=== PATIENT | female | born 1995 | race African-American/Black ===

== ENCOUNTER 2018-07-16 10:20 | Emergency (ER) | payer SELFPAY ==
[2018-07-16 12:25] LABS: #Eosinphils 0.3 thou/uL (0.0-0.7); #Lymphocytes 2.1 thou/uL (1.20-3.40); #Monocytes 0.4 thou/uL (0.11-0.59); #Neutrophils 5.1 thou/uL (1.40-6.50); %Basophils 0.4 % (0.0-1.0); %Eosinophils 4.1 % (0.0-10.0); %Lymphocytes 26.7 % (21.0-51.0); %Monocytes 4.9 % (0.0-10.0); Hemoglobin 13.4 g/dL (12.0-16.0); Mean Corpuscular HGB CONC 32.4 g/dL (32.0-36.0); Mean Corpuscular Hemoglobin 28.8 pg (27.0-31.0); Mean Corpuscular Volume 88.7 fL (78.0-98.0); Mean Platelet Volume 8.7 fL (7.4-10.4); Platelet Count 348 thou/uL (130-400); RBC Distribution Width 13.3 % (11.5-14.5); Red Blood Cell (RBC) Count 4.66 mill/uL (4.20-5.40); White Blood Cell (WBC) Count 7.9 thou/uL (4.8-10.8)
[2018-07-16 12:46] LABS: ALT (SGPT) 15 U/L (8-55); AST (SGOT) 21 U/L (5-34); Albumin 4.4 g/dL (3.5-5.0); Alkaline Phosphatase 78 U/L (40-150); Anion Gap 13 mmol/L (10-20); BUN (Urea Nitrogen) 9 mg/dL (7.0-18.7); Bilirubin, Total 0.2 mg/dL (0.2-1.2); Calc. Creatinine Clearance 0 mL/min (70-130); Calcium 9.6 mg/dL (7.8-10.44); Carbon Dioxide 24 mmol/L (22-29); Chloride 104 mmol/L (98-107); Estimated GFR-MDRD Greater than 90; Globulin 3.1 g/dL (2.4-3.5); Glucose 88 mg/dL (70-105); Protein, Total 7.5 g/dL (6.0-8.3); Sodium 137 mmol/L (136-145)
[2018-07-16 12:52] LABS: Bilirubin Negative (Negative); Blood, Urine Negative (Negative); Clarity CLEAR (Clear); Glucose, Urine (Dipstick) Negative (Negative); Leukocyte Small (Negative); Nitrite Negative (Negative); Protein, Urine (Dipstick) Negative (Neg-Trace); Specific Gravity, Urine 1.003 (1.002-1.036); Urobilinogen 0.2 mg/dL (0.2-1.0); pH, Urine 6.5 (5.0-9.0)
[2018-07-16 12:53] LABS: Pregnancy Test - Urine (BHCG) Negative (Negative)
[2018-07-16 12:54] LABS: Bacteria/HPF Rare-Few HPF (None Seen); Hyaline Casts/LPF 0-3 HYALINE CAST LPF (0-3 Hyaline); Pathc Cast-AUWi Flag 0.54 (0-2.49); Pregu Control Background? CLEAR/WHITE (CLR/WHITE); Pregu Control Bar Appear? YES (CONTROL BAR); RBC/HPF 0-3 HPF (0-3); Specific Gravity 1.003 (1.002-1.036); Squamous Epithelial 0-3 HPF (0-3)
[2018-07-16] MEDS ORDERED: Ketorolac Tromethamine 30 MG/ML VIAL ONE (13:14)
--- NOTE | 2018-07-16 13:14 | RAD ---
XR Abdomen 2 View/1 View Cxr History: [Cough abdominal pain] Comparison: None. Findings: The lungs are clear. No pneumothorax or effusion. Moderate S-shaped scoliosis of the thorac olumbar spine. Cardiac silhouette and mediastinal contours are within normal limits. Phleboliths in the pelvis. No a bnormal calcifications ejecting over the renal shadows. There is expansile area within the left anterior eighth rib. Impression: 1. No acute thoracic abnormality. 2. No acute intra-abdominal abnormality. 3. Expansile focus of lucency and heterogeneous medullary cavity of the left anterior eighth rib. CT would be recommended to evaluate underlying internal matrix nonemergently. Correlation for a history of trauma and fracture.
[2018-07-16] MEDS ORDERED: Dicyclomine 20 MG TAB ONE (13:35)
== END 2018-07-16 13:57 | disposition home or self-care (01) ==
LOC: ERS 10:20
DX: R10.9 Unspecified abdominal pain (principal); R09.81 Nasal congestion
CPT/HCPCS: 36415; 74022; 80053; 81003; 81015; 81025; 85025; 87081; 87086; 87430; 96372; J1885